=== PATIENT | female | born 1960 | race Two or more races ===

== ENCOUNTER 2016-08-16 11:41 | Emergency (ER) | payer OTHER ==
[~2016-08-16] VITALS: Ht 167.6 cm; Wt 88.2 kg
[2016-08-16 16:05] LABS: CLARITY URINE CLEAR (CLEAR); COLOR URINE YELLOW (YELLOW); GLUCOSE URINE NEGATIVE (NEGATIVE); KETONES URINE NEGATIVE (NEGATIVE); LEUKOCYTE ESTERASE URINE NEGATIVE (NEGATIVE); NITRITE URINE NEGATIVE (NEGATIVE); OCCULT BLOOD URINE NEGATIVE (NEGATIVE); PROTEIN URINE NEGATIVE (NEGATIVE); SPECIFIC GRAVITY URINE 1.016 (1.005-1.030); UROBILINOGEN URINE 0.2 E.U./dL (0.2-1.0)
[2016-08-16] MEDS ORDERED: ONDANSETRON HCL 4MG/2ML VIAL IV ONE (17:00)
[2016-08-16] MEDS ORDERED: KETOROLAC 30MG/ML VIAL IV ONE (17:00)
[2016-08-16] MEDS ORDERED: SODIUM CHLORIDE 0.9% 1,000 ML IV ONE (17:00)
[2016-08-16] MEDS ORDERED: CEFTRIAXONE 1 G PREMIX 50 ML IV ONE (17:00)
[2016-08-16 17:58] LABS: BASOPHILS % 0.7 % (0.0-2.0); EOSINOPHILS % 0.9 % (0.0-5.0); HEMATOCRIT. 27.1 % (36.0-48.0); HEMOGLOBIN. 8.6 g/dL (12.0-16.0); LYMPHOCYTES % 21.6 % (20.0-50.0); MEAN CORPUSCULAR HEMOGLOBIN 23.5 pg (28.0-32.0); MEAN CORPUSCULAR VOLUME 74.4 fL (81.0-99.0); MEAN PLATELET VOLUME 8.8 fl (7.4-10.4); MONOCYTES % 6.7 % (2.0-8.0); NEUTROPHILS % 70.1 % (40.0-76.0); PLATELET 468 x1000/uL (130-400); RED BLOOD CELL COUNT 3.65 mill/uL (4.2-5.4); RED CELL DISTRIBUTION WIDTH 17.2 % (11.6-14.6)
[2016-08-16 18:03] LABS: CHLORIDE 102 mEq/L (98-107)
[2016-08-16 18:04] LABS: INR 1.2
[2016-08-16 18:07] LABS: CARBON DIOXIDE 29 mEq/L (21-32)
[2016-08-16] MEDS ORDERED: MORPHINE SULFATE 4 MG/ML CPJ (NOT FOR IM USE) IV ONE (19:45)
[2016-08-16 19:57] VITALS: BP 118/50
== END 2016-08-16 20:46 | disposition home or self-care (01) ==
LOC: ER 16:06
DX: K91.872 Postprocedural seroma of a digestive system organ or structure following a digestive system procedure (principal); I10 Essential (primary) hypertension
CPT/HCPCS: 36415; 74176; 80053; 81003; 81025; 83605; 85025; 85610; 87040; 96365; 96375; 99285; J0696; J1885; J2270; J2405; J7030; Z7610

== ENCOUNTER 2016-08-28 11:18 | Emergency (ER) | payer OTHER ==
[~2016-08-28] VITALS: Ht 160 cm; Wt 99.0 kg
[2016-08-28] MEDS ORDERED: IBUPROFEN 600MG TABLET PO ONE (13:15)
[2016-08-28] MEDS ORDERED: TRAMADOL 50MG TABLET PO ONE (13:15)
[2016-08-28 15:27] VITALS: BP 115/72
== END 2016-08-28 15:47 | disposition home or self-care (01) ==
LOC: ER 11:19
DX: G89.18 Other acute postprocedural pain (principal); I10 Essential (primary) hypertension; L76.34 Postprocedural seroma of skin and subcutaneous tissue following other procedure
CPT/HCPCS: 76705; 87070; 87077; 87186; 87205; 99285; Z7610; 99284